=== PATIENT | female | born 1965 | race Caucasian/White ===

== ENCOUNTER 2016-10-27 19:53 | Emergency (ER) | payer BC ==
[2016-10-27 20:03] VITALS: BP 136/81
[2016-10-27 20:46] LABS: CHLORIDE,CL 96 mEq/L (98-106); SODIUM,NA 132 mEq/L (136-145)
--- NOTE | 2016-10-27 21:23 | EDM.PDOC ---
[id number] 4d chemo pt fever Time Seen by Provider: 10/27/16 20:04 Source of Information: Reports: Patient History Limitations: Reports: No Limitations - History of Present Illness INITIAL COMMENTS - FREE TEXT/NARRATIVE: Patient presents to ER with a 24 hour history of chills. She relates that last evening she did have difficulty getting warmed up while in bed but didn't make much of it at that time. Today she has felt that way off an on but this evening , she noted she was in a warm room and still was chilled to the point she needed to put a sweatshirt on. She checked her temp at home and it was 101 but wasn't sure if her thermometer was working right. She is currently on chemo for breast cancer with mets to the lung. Last chemo session was on the . She did receive neulasta on the . Onset: Gradual Duration: Hour(s): Location: Reports: Generalized Severity: Moderate Associated Symptoms: Reports: Cough (describes as a tickle in her throat, not a real cough), Fever/Chills, Nausea/Vomiting. Denies: Confusion, Headaches, Loss of Appetite, Shortness of Breath Treatments DIAGNOSTIC RADIOLOGIST: Reports: Acetaminophen - Related Data Allergies Allergy/AdvReac Type Severity Reaction Status Date / Time No Known Allergies Allergy Verified 08/20/15 19:44 Home Meds: Home Meds Loratadine [Claritin] 10 mg PO DAILY 06/24/15 [History] Omeprazole 20 mg PO DAILY 06/24/15 [History] Benzonatate [Benzonatate] 100 mg PO TID PRN 10/18/16 [History] Cyclobenzaprine [Flexeril] 10 mg PO DAILY PRN 10/18/16 [History] Eribulin [Halaven] 1 mg IV ASDIRECTED 10/18/16 [History] LORazepam [Ativan] 0.5 mg PO BID PRN 10/18/16 [History] Multivitamin [Multi-Day Vitamins] 1 each PO DAILY 10/18/16 [History] Sertraline [Zoloft] 25 mg PO DAILY 10/18/16 [History] Past Medical History Oncologic (Cancer) History: Reports: Breast - Past Surgical History Oncologic Surgical History: Reports: Mastectomy Social & Family History - Family History Family Medical History: Noncontributory - Tobacco Use Smoking Status *Q: Never Smoker Second Hand Smoke Exposure: No - Recreational Drug Use Recreational Drug Use: No ED ROS GENERAL - Review of Systems Review Of Systems: See Below Constitutional: Reports: Fever, Chills, Malaise, Weakness, Fatigue HEENT: Denies: Ear Pain, Sinus Problem, Throat Pain, Vertigo Respiratory: Reports: Cough. Denies: Shortness of Breath, Wheezing Cardiovascular: Denies: Chest Pain, Edema, Lightheadedness Endocrine: Reports: Fatigue GI/Abdominal: Denies: Abdominal Pain, Constipation, Diarrhea, Nausea, Vomiting : Reports: No Symptoms Musculoskeletal: Reports: No Symptoms Skin: Reports: No Symptoms Neurological: Reports: No Symptoms ED EXAM, GENERAL - Physical Exam Exam: See Below Exam Limited By: No Limitations General Appearance: Alert, WD/WN, No Apparent Distress Ears: Normal External Exam, Normal TMs Nose: Normal Inspection, Normal Mucosa, No Blood Throat/Mouth: Normal Inspection, Normal Oropharynx Head: Normocephalic Neck: Normal Inspection, Supple, Non-Tender Respiratory/Chest: No Respiratory Distress, Lungs Clear, Normal Breath Sounds Cardiovascular: Regular Rate, Rhythm GI/Abdominal: Normal Bowel Sounds, Soft, Non-Tender Extremities: Normal Inspection, Normal Range of Motion Neurological: Alert, Oriented Psychiatric: Normal Affect, Normal Mood Skin Exam: Warm, Dry Course - Vital Signs Last Recorded V/S: Last Vital Signs Temp 103.5 F H 10/27/16 19:57 Pulse 129 H 10/27/16 19:57 Resp 18 10/27/16 19:57 BP 136/81 10/27/16 19:57 Pulse Ox 96 10/27/16 19:57 - Orders/Labs/Meds Orders: Active Orders 24 hr Category Date Time Status Chest 2V [CR] Stat Exams 10/27/16 20:16 Taken CULTURE BLOOD [BC] Stat Lab 10/27/16 20:20 Received Labs: Laboratory Tests 10/27/16 10/27/16 10/27/16 Range/Units 19:57 20:20 20:20 WBC 19.1 H (5.0-10.0) 10^3/uL RBC 2.99 L (4.00-5.50) 10^6/uL Hgb 9.2 L (12.0-16.0) g/dL Hct 28.6 L (37.0-47.0) % MCV 95.7 H (82.0-94.0) fL MCH 30.8 (27.0-32.0) pg MCHC 32.2 L (33.0-38.0) g/dL RDW Coeff of Pattie 19.3 H (11.0-15.0) % Plt Count 189 (150-400) 10^3/uL Neut % (Auto) 82.1 (35-85) % Lymph % (Auto) 9.4 L (10-55) % [place] % (Auto) 8.3 (0-16) % Eos % (Auto) 0 (0-5) % Baso % (Auto) 0.2 (0-3) % Neut # (Auto) 15.68 H (1.80-7.00) 10^3/uL Lymph # (Auto) 1.80 (1.00-4.80) 10^3/uL [place] # (Auto) 1.59 H (0.00-0.80) 10^3/uL Eos # (Auto) 0.00 (0.00-0.45) 10^3/uL Baso # (Auto) 0.04 10^3/uL Sodium 132 L (136-145) mEq/L Potassium 3.2 L (3.5-5.0) mEq/L Chloride 96 L (98-106) mEq/L Carbon Dioxide 25 (21-32) mmol/L BUN 9 (7-18) mg/dL Creatinine 0.7 (0.6-1.0) mg/dL Est Cr Clr Drug Dosing 94.84 mL/min Estimated GFR (MDRD) > 60 (>=60) mL/min Glucose 118 H D (75-99) mg/dL Calcium 8.5 (8.4-10.1) mg/dL Total Bilirubin 0.6 (0.0-1.0) mg/dL AST 42 H (15-37) U/L ALT 32 (12-78) U/L Alkaline Phosphatase 127 H (46-116) U/L C-Reactive Protein 12.7 H (0.2-0.8) mg/dL Total Protein 6.6 (6.4-8.2) g/dL Albumin 3.0 L (3.4-5.0) g/dL Urine Color Yellow (YELLOW) Urine Appearance Clear (CLEAR) Urine pH 6.5 (4.5-8.0) Ur Specific [place] <= 1.005 (1.003-1.020) Urine Protein Negative (NEGATIVE) mg/dL Urine Glucose (UA) Negative (NEGATIVE) mg/dL Urine Ketones Negative (NEGATIVE) mg/dL Urine Occult Blood Negative (NEGATIVE) Urine Nitrite Negative (NEGATIVE) Urine Bilirubin Negative (NEGATIVE) Urine Urobilinogen 0.2 (0.2-1.0) EU/dL Ur Leukocyte Esterase Negative (NEGATIVE) Urine RBC Not seen (0-5) /HPF Urine WBC 0-5 (0-5) /HPF Ur Epithelial Cells Few H (NOT SEEN) /HPF Urine Bacteria Few H (NOT SEEN) /HPF - Re-Assessments/Exams Free Text/Narrative Re-Assessment/Exam: 10/27/16 21:15- Did contact [facility] and spoke with Dr. Lee in regards to patient's labs, fever and status. He advised admission at [facility] for further investigation for source of infection as chest xray, urine are clear for obvious source. Unable to obtain any blood return from port after 2 attempts to draw. Will flush easily but no blood return obtained. Patient will transfer by private vehicle. Was given tylenol for fever. Advised to push fluids enroute. She is aware of the risks of private transfer to include worsening status, MVC or even . Benefits of transfer to include the specialty care of oncology not provided at this facility. Risks of non- transfer include lack of specialized care. Benefits include being close to home. Agree to accept the transfer. Departure - Departure Time of Disposition: 21:27 Disposition: DC/Tfer to Acute Hospital 02 Condition: Undetermined Clinical Impression: Breast cancer metastasized to lung Fever Qualifiers: Fever type: unspecified Qualified Code(s): R50.9 - Fever, unspecified - Discharge Information Referrals: Papito Milligan MD [Primary Care Provider] - Forms: ED Department Discharge Additional Instructions: Transfer per private vehicle to [facility] to Dr. Lee. - My Orders Last 24 Hours: My Active Orders 10/27/16 20:16 Chest 2V [CR] Stat 10/27/16 20:20 CULTURE BLOOD [BC] Stat - Assessment/Plan Last 24 Hours: My Active Orders 10/27/16 20:16 Chest 2V [CR] Stat 10/27/16 20:20 CULTURE BLOOD [BC] Stat
== END 2016-10-27 21:33 ==
LOC: CC.ED 19:53
DX: C50.919 Malignant neoplasm of unspecified site of unspecified female breast (principal); C78.00 Secondary malignant neoplasm of unspecified lung; R50.9 Fever, unspecified; Z51.11 Encounter for antineoplastic chemotherapy; Z79.899 Other long term (current) drug therapy
CPT/HCPCS: 36415; 71020; 80053; 81001; 85025; 86140; 87040; 99285